=== PATIENT | female | born 1960 | race Caucasian/White ===

== ENCOUNTER 2021-07-27 08:32 | Outpatient (CLI) | payer BC | END 2021-07-27 08:33 | disposition home or self-care (01) | LOC: BICMAMMO 08:32 | PROVIDERS: ATTEND Family Medicine | DX: Z12.31 Encounter for screening mammogram for malignant neoplasm of breast (principal); Z80.3 Family history of malignant neoplasm of breast | CPT/HCPCS: 77063; 77067 ==

== ENCOUNTER 2022-10-16 12:00 | Outpatient (CLI) | payer BC | END 2022-10-16 12:01 | disposition home or self-care (01) | LOC: BICRAD 12:00 | PROVIDERS: ATTEND Family Medicine | DX: M19.90 Unspecified osteoarthritis, unspecified site (principal); S62.614D Displaced fracture of proximal phalanx of right ring finger, subsequent encounter for fracture with routine healing ==

== ENCOUNTER 2023-05-18 11:40 | Outpatient (CLI) | payer BC | END 2023-05-18 11:41 | disposition home or self-care (01) | LOC: RAD 11:40 | PROVIDERS: ATTEND Family Medicine | DX: J20.9 Acute bronchitis, unspecified (principal) | CPT/HCPCS: 71046 ==